=== PATIENT | female | born 1970 | race African-American/Black ===

== ENCOUNTER 2024-10-22 09:50 | Emergency (ER) | payer MEDICAID ==
[~2024-10-22] VITALS: Ht 162.6 cm; Wt 64.0 kg
[2024-10-22 09:55] VITALS: TEMP 36.8; O2SAT 100
[2024-10-22 10:31] LABS: CLARITY URINE CLEAR (CLEAR); COLOR URINE YELLOW (YELLOW); GLUCOSE URINE NEGATIVE (NEGATIVE); KETONES URINE NEGATIVE (NEGATIVE); LEUKOCYTE ESTERASE URINE NEGATIVE (NEGATIVE); NITRITE URINE NEGATIVE (NEGATIVE); OCCULT BLOOD URINE NEGATIVE (NEGATIVE); PH URINE 5.0 (4.5-8.0); PROTEIN URINE NEGATIVE (NEGATIVE); SPECIFIC GRAVITY URINE 1.023 (1.005-1.030); UROBILINOGEN URINE 0.2 E.U./dL (0.2-1.0)
[2024-10-22] MEDS: IBUPROFEN 600MG TABLET PO ONE (10:45)
[2024-10-22 11:12] LABS: BASOPHILS % 0.9 % (0.0-2.0); EOSINOPHILS % 3.4 % (0.0-5.0); HEMATOCRIT. 38.2 % (36.0-48.0); HEMOGLOBIN. 12.6 g/dL (12.0-16.0); LYMPHOCYTES % 35.4 % (20.0-50.0); MEAN PLATELET VOLUME 9.7 fl (7.4-10.4); MONOCYTES % 9.1 % (2.0-8.0); NEUTROPHILS % 51.2 % (40.0-76.0); PLATELET 180 x1000/uL (130-400); RED BLOOD CELL COUNT 4.93 mill/uL (4.2-5.4); RED CELL DISTRIBUTION WIDTH 15.4 % (11.6-14.6)
[2024-10-22 11:27] LABS: CREATININE 0.7 mg/dL (0.6-1.0); UREA NITROGEN BLOOD 8 mg/dL (9-23)
[2024-10-22 11:29] LABS: ASPARTATE AMINOTRANSFERASE 15 IU/L (<34); BILIRUBIN TOTAL 0.4 mg/dL (0.1-1.0); PROTEIN TOTAL 7.3 g/dL (6.0-8.3)
[2024-10-22 11:49] LABS: HCG SCREEN NEGATIVE
[2024-10-22 13:04] VITALS: BP 126/67; PULSE 61; RESP 14; O2SAT 100
== END 2024-10-22 13:14 | disposition home or self-care (01) ==
LOC: ER 09:50
DX: D25.9 Leiomyoma of uterus, unspecified (principal); I10 Essential (primary) hypertension; Z87.440 Personal history of urinary (tract) infections
CPT/HCPCS: 36415; 76700; 76830; 76856; 80053; 81003; 84703; 85025; 99284